=== PATIENT | male | born 1970 | race African-American/Black ===

== ENCOUNTER 2022-02-14 01:43 | Emergency (ER) | payer OTHER ==
[~2022-02-14] VITALS: Ht 170.2 cm; Wt 90.7 kg
--- NOTE | 2022-02-14 01:57 | NUR ---
PABLITO FROM HOME TO ER BED 2. AAOX4. NOT IN RESP DISTRESS. AMBULATORY. CAME IN FOR A SYNCOPAL EPISODE WHILE HE WAS STANDING UP TYO GO TO THE BATHROOM. PT IS ON BOWEL PREP FOR A COLONOSPY TOMORROW. PT HIT HIS FACE AND OBTAIN MULTIPLE SUPERFICIAL ABRASSION. AWAITING MD FOR EVAL
--- NOTE | 2022-02-14 02:25 | NUR ---
BLOOD DRAWN AND SENT TO LAB
[2022-02-14] MEDS ORDERED: ACETAMINOPHEN 325 MG TABLET ONE (02:28)
[2022-02-14] MEDS ORDERED: TDAP [DIPH/PERTUSSIS/TET] 0.5 ML VIAL IM ONE ×2 (02:28→02:30)
[2022-02-14] MEDS ORDERED: IV NS 0.9% 1,000 ML IV ONE (02:30)
[2022-02-14] MEDS ORDERED: ACETAMINOPHEN 325 MG TABLET PO ONE (02:30)
--- NOTE | 2022-02-14 02:50 | NUR ---
XRAYS DONE AT BEDSIDE
[2022-02-14 02:55] LABS: BASOPHILS % (AUTO) 0.4 % (0.0-2.0); EOSINOPHILS % (AUTO) 1.2 % (0.0-6.0); HEMATOCRIT 40 % (39-51); HEMOGLOBIN 13.6 g/dL (13.5-17.5); LYMPHOCYTES # (AUTO) 1.5 K/uL (0.8-4.8); MEAN CORPUSCULAR HGB CONC 34 g/dl (31.0-36.0); MEAN CORPUSCULAR VOLUME 91 fL (80-96); MONOCYTES # (AUTO) 0.7 K/uL (0.1-1.30); MONOCYTES % (AUTO) 8.5 % (2.0-12.0); NEUTROPHILS # (AUTO) 5.9 K/uL (1.8-8.9); NEUTROPHILS % (AUTO) 71.9 % (43.0-81.0); PLATELET COUNT (AUTO) 173 K/uL (150-450); RED BLOOD CELL COUNT(AUTO) 4.42 MIL/uL (4.5-6.0); WHITE BLOOD COUNT (AUTO) 8.3 K/uL (4.3-11.0)
[2022-02-14 03:07] LABS: CALCIUM, SERUM 9.3 mg/dL (8.5-10.1); CARBON DIOXIDE 27 mmol/L (21-32); CHLORIDE 107 mmol/L (98-107); CREATININE 1.5 mg/dL (0.6-1.3); GLUCOSE 99 mg/dL (74-106); POTASSIUM 3.6 mmol/L (3.5-5.1); SODIUM SERUM 140 mmol/L (136-145); UREA NITROGEN, BLOOD 12 mg/dL (7-18)
[2022-02-14 03:21] LABS: ALANINE AMINOTRANSFERASE 29 U/L (12-78); ALBUMIN 3.5 g/dL (3.4-5.0); ALKALINE PHOSPHATASE 44 U/L (46-116); ASPARTATE AMINOTRANSFERASE 23 U/L (15-37); BILIRUBIN,DIRECT 0.2 mg/dL (0.0-0.2); BILIRUBIN,TOTAL 0.6 mg/dL (0.2-1.0); TOTAL PROTEIN, SERUM 7.4 g/dL (6.4-8.2)
--- NOTE | 2022-02-14 06:07 | NUR ---
IV CANNULA REMOVED
--- NOTE | 2022-02-14 06:07 | NUR ---
Patient discharged to home in stable condition. Written and verbal after care instructions given. Patient verbalizes understanding of instruction.
[2022-02-14 06:08] VITALS: BP 117/59
== END 2022-02-14 06:08 | disposition home or self-care (01) ==
LOC: ER 01:50
DX: S00.81XA Abrasion of other part of head, initial encounter (principal); R55 Syncope and collapse; Z60.2 Problems related to living alone; W18.12XA Fall from or off toilet with subsequent striking against object, initial encounter; Y93.89 Activity, other specified; Y92.89 Other specified places as the place of occurrence of the external cause; Y99.8 Other external cause status
CPT/HCPCS: 36415; 70450-TC; 70486-TC; 71045-TC; 72170-TC; 73552; 80048-TC; 80076-TC; 83605-TC; 83735-TC; 84484-TC; 85025-TC; 85730-TC; 90715